=== PATIENT | male | born 1955 | race Caucasian/White ===

== ENCOUNTER 2019-04-26 06:18 | Outpatient (CLI) | payer MEDICARE ==
--- NOTE | 2019-04-26 09:27 | RAD ---
XR Chest Pa Lat STANDARD HISTORY: Preoperative evaluation COMPARISON: None FINDINGS: The heart size is normal. The lungs are well expanded without focal areas of consolidation, pneumothorax or pleural effusions. Is a small calcified granuloma in the left lower lobe. IMPRESSION: No radiographic evidence of acute cardiopulmonary process.
[2019-04-26 09:58] LABS: #Eosinphils 0.1 thou/uL (0.0-0.7); #Lymphocytes 1.1 thou/uL (1.20-3.40); #Monocytes 0.5 thou/uL (0.11-0.59); #Neutrophils 3.8 thou/uL (1.40-6.50); %Basophils 0.3 % (0.0-1.0); %Eosinophils 1.3 % (0.0-10.0); %Lymphocytes 19.5 % (21.0-51.0); %Monocytes 9.8 % (0.0-10.0); %Neutrophils 69.2 % (42.0-75.0); Hemoglobin 12.4 g/dL (14.0-18.0); Mean Corpuscular HGB CONC 30.8 g/dL (32.0-36.0); Mean Corpuscular Hemoglobin 26.4 pg (27.0-31.0); Mean Corpuscular Volume 85.5 fL (78.0-98.0); Mean Platelet Volume 8.1 fL (7.4-10.4); Platelet Count 218 thou/uL (130-400); RBC Distribution Width 16.8 % (11.5-14.5); White Blood Cell (WBC) Count 5.5 thou/uL (4.8-10.8)
[2019-04-26 10:17] LABS: Anion Gap 11 mmol/L (10-20); BUN (Urea Nitrogen) 15 mg/dL (8.4-25.7); Calc. Creatinine Clearance 0 mL/min (70-130); Calcium 9.1 mg/dL (7.8-10.44); Carbon Dioxide 26 mmol/L (23-31); Chloride 105 mmol/L (98-107); Estimated GFR-MDRD Greater than 90; Glucose 87 mg/dL (80-115); Potassium 4.1 mmol/L (3.5-5.1); Sodium 138 mmol/L (136-145)
== END 2019-04-26 06:19 | disposition home or self-care (01) ==
LOC: LABBT 06:18
PROVIDERS: ATTEND Surgery
DX: Z01.818 Encounter for other preprocedural examination (principal); K42.9 Umbilical hernia without obstruction or gangrene
CPT/HCPCS: 71046; 80048; 85025

== ENCOUNTER 2019-04-28 08:06 | Outpatient (CLI) | payer MEDICARE ==
--- NOTE | 2019-04-28 08:32 | ULT ---
ULTRASOUND OF ABDOMINAL AORTA: Date: 04/28/2019 HISTORY: Screening for abdominal aortic aneurysm. FINDINGS: The abdominal aorta measures about 2.0 cm in maximum dimension. IMPRESSION: No evidence of abdominal aortic aneurysm. POS: OFF
== END 2019-04-28 08:07 | disposition home or self-care (01) ==
LOC: BICULT 08:06
PROVIDERS: ATTEND Family Medicine
DX: Z00.00 Encounter for general adult medical examination without abnormal findings (principal); Z13.6 Encounter for screening for cardiovascular disorders
CPT/HCPCS: 76775

== ENCOUNTER 2019-04-29 05:44 | Day surgery (SDC) | payer MEDICARE ==
[2019-04-26 08:51] VITALS: BMI 32.7
[2019-04-29] MEDS ORDERED: Levofloxacin 500 mg/D5W 100 ml Premix Bag ONE (06:05)
[2019-04-29] MEDS ORDERED: Ketorolac Tromethamine 30 MG/ML VIAL ONE (06:05)
[2019-04-29] MEDS ORDERED: Clindamycin/D5W 900 mg/50 ml Premix Bag ONE (06:05)
[2019-04-29] MEDS ORDERED: Acetaminophen 500 MG TAB ONE (06:06)
[2019-04-29] MEDS ORDERED: Bupivacaine PF 0.5% 30 ML VIAL ONE (06:41)
[2019-04-29] MEDS ORDERED: Lidocaine 1% w/Epinephrine 1:100K 20 ML VIAL ONE (06:41)
[2019-04-29] MEDS ORDERED: Midazolam HCl 2 mg/2 ml Vial ONE (07:40)
[2019-04-29] MEDS ORDERED: Fentanyl 100 MCG/2 ML VIAL ONE (07:40)
[2019-04-29] MEDS ORDERED: Lidocaine 1% PF 5 ML VIAL ONE (10:24)
[2019-04-29] MEDS ORDERED: PROPOFOL 200 MG/20 ML VIAL ONE (10:24)
--- NOTE | 2019-04-29 16:13 | PDOC.OP ---
Operative Note - Operative Note Operative Note: PROCEDURE: Umbilical hernia repair with mesh DATE OF PROCEDURE: 04/29/2019 SURGEON: Verito Mittal M.D. PREOPERATIVE DIAGNOSIS: Umbilical hernia POSTOPERATIVE DIAGNOSIS: Umbilical hernia HISTORY: Patient with symptomatic umbilical hernia for which operative repair was recommended. PROCEDURE: After informed consent was obtained and appropriate preoperative antibiotic were administered the patient was taken to the operating room, placed in the supine position, and general anesthesia was administered. The abdomen was prepped and draped in standard sterile fashion and local anesthesia infused the skin and subcutaneous tissues overlying the umbilicus. A circumumbilical incision was made and dissection carried down to the hernia sac which was dissected free to the fascia circumferentially. The fascial defect was under 2 cm in diameter, containing preperitoneal fat only. The hernia was reduced into the abdominal cavity and dissection carried out in the preperitoneal space for several centimeters in each direction from the fascial edge. A 4.3 cm mesh was obtained and placed into the preperitoneal space. The fascia was then closed with [id number] permanent braided suture, incorporating the central strap into the closure. The external portions of the straps were then trimmed and discarded. The subcutaneous tissues were reapproximated with 3-0 Monocryl suture and the skin closed with 4-0 running subcuticular Monocryl suture. Dermabond dressings were placed and once this was dry a pressure dressing was placed. The patient was extubated and taken to the recovery room in good condition. Estimated blood loss minimal. There were no complications. There were no specimens.
== END 2019-04-29 12:20 | disposition home or self-care (01) ==
LOC: SDC 05:44
PROVIDERS: ATTEND Surgery
PROC: 0WUF0JZ Supplement Abdominal Wall with Synthetic Substitute, Open Approach (ICD-10-PCS; principal; 2019-04-29)
DX: K42.9 Umbilical hernia without obstruction or gangrene (principal); D64.9 Anemia, unspecified; J06.9 Acute upper respiratory infection, unspecified; E66.9 Obesity, unspecified; Z68.32 Body mass index [BMI] 32.0-32.9, adult; Z87.891 Personal history of nicotine dependence; Z79.2 Long term (current) use of antibiotics; Z79.899 Other long term (current) drug therapy; Z88.0 Allergy status to penicillin
CPT/HCPCS: J1885; J1956; J2001; J2250; J2704; J3010; J3490; S0020